=== PATIENT | male | born 1995 | race Caucasian/White ===

== ENCOUNTER 2016-11-09 08:00 | Emergency (ER) | payer OTHER ==
[~2016-11-09] VITALS: Ht 188 cm; Wt 81.6 kg
[2016-11-09 08:07] VITALS: BP 115/67
--- NOTE | 2016-11-09 08:12 | NUR ---
Patient ambulated to bed 08.
--- NOTE | 2016-11-09 08:15 | NUR ---
21/M BIB SELF C/O right ear pain x 1 months has worsen as per pt with SMALL drainage denies wall, no dizziness, denies traum. SKIN IS PINK/WARM/DRY; AAOX4 WITH EVEN AND STEADY GAIT; LUNGS CLEAR BL; HR EVEN AND REGULAR; PT DENIES ANY FEVER, CP, SOB, OR COUGH AT THIS TIME; PATIENT STATES PAIN OF 8/10 AT THIS TIME; VSS; PATIENT POSITIONED FOR COMFORT; HOB ELEVATED; BEDRAILS UP X2; BED DOWN. ER MD MADE AWARE OF PT STATUS.
--- NOTE | 2016-11-09 08:23 | NUR ---
Dr. Herrera evaluating patient at bedside.
[2016-11-09 08:47] VITALS: BP 121/73
--- NOTE | 2016-11-09 08:47 | NUR ---
Patient discharged with v/s stable. Written and verbal after care instructions given and explained. Patient alert, oriented and verbalized understanding of instructions. Ambulatory with steady gait. All questions addressed prior to discharge. ID band removed. Patient advised to follow up with PMD. Rx of CORTISPORIN OTIC SUSPENSION given. Patient educated on indication of medication including possible reaction and side effects. Opportunity to ask questions provided and answered.
== END 2016-11-09 08:47 | disposition home or self-care (01) ==
LOC: MED 08:00
DX: H60.91 Unspecified otitis externa, right ear (principal)
CPT/HCPCS: 99283

== ENCOUNTER 2018-02-20 17:39 | Emergency (ER) | payer OTHER ==
[~2018-02-20] VITALS: Ht 182.9 cm; Wt 79.4 kg
[2018-02-20 18:00] VITALS: BP 119/74
[2018-02-20] MEDS ORDERED: LIDOCAINE 2% 1000 MG/50 ML VIAL INJ ONE (18:15)
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
--- NOTE | 2018-02-20 19:00 | NUR ---
ASSISTED ER MD SAENZ IN REMOVAL OF COCKROACH FROM PT LEFT EAR AT THIS TIME. PT TOLERATED WELL.
--- NOTE | 2018-02-20 19:21 | NUR ---
REPORT GIVEN TO ROBIN IZQUIERDO RN AT THIS TIME
[2018-02-20 19:38] VITALS: BP 119/74
--- NOTE | 2018-02-20 19:39 | NUR ---
DPatient discharged with v/s stable. Written and verbal after care instructions given and explained. Patient alert, oriented and verbalized understanding of instructions. Ambulatory with steady gait. All questions addressed prior to discharge. ID band removed. Patient advised to follow up with PMD. Rx of Cortisporin given. Patient educated on indication of medication including possible reaction and side effects. Opportunity to ask questions provided and answered.
== END 2018-02-20 19:39 | disposition home or self-care (01) ==
LOC: MED 17:39
DX: T16.2XXA Foreign body in left ear, initial encounter (principal); X58.XXXA Exposure to other specified factors, initial encounter
CPT/HCPCS: 99284; J2001